=== PATIENT | female | born 1970 | race Caucasian/White ===

== ENCOUNTER 2017-04-03 11:01 | Emergency (ER) | payer OTHER ==
[~2017-04-03] VITALS: Ht 160 cm; Wt 66.5 kg
[2017-04-03 11:05] VITALS: Ht 160 cm; Wt 66.5 kg
--- NOTE | 2017-04-03 11:27 | ERD ---
ER Documentation Chief Complaint Date/Time DATE: 04/03/17 TIME: 11:25 Chief Complaint both eye swelling x 2 days; possible allergic rxn to food HPI 47-year-old female comes with bilateral eye swelling and itching around the mouth after eating mangoes 3 days ago. She has suffered tried loratadine for this, also took Atarax continues of swelling. She has no trouble swallowing, voice changes, drooling or shortness of breath. Patient also reports she woke up today with lower back pain. Is worse with movement. She denies any fevers, hematuria, UTI symptoms. No chest pain or shortness of breath. ROS All systems reviewed and are negative except as per history of present illness. Medications Home Meds Active Scripts Famotidine* (Famotidine*) 20 Mg Tablet, 20 MG PO BID for 5 Days, #10 TAB Prov:CATALINA WHELAN PA-C 04/03/17 Diphenhydramine Hcl* (Benadryl*) 25 Mg Cap, 25 MG PO Q6, #30 CAP Prov:CATALINA WHELAN PA-C 04/03/17 Prednisone* (Prednisone*) 20 Mg Tab, 40 MG PO DAILY for 4 Days, TAB Prov:CATALINA WHELAN PA-C 04/03/17 Allergies Allergies: Coded Allergies: No Known Allergy (Unverified , 04/03/17) Physical Exam Vitals Vital Signs Date Time Temp Pulse Resp B/P Pulse Ox O2 Delivery O2 Flow Rate FiO2 04/03/17 11:05 98.2 74 18 113/66 98 Physical Exam General: Well-developed, well-nourished. The patient appears in no acute distress. HEENT: Head is normocephalic, atraumatic. No scleral icterus. Pupils are equal , round, and reactive. Mild periorbital swelling. Oral mucous membranes are moist. No pharyngeal erythema. No angioedema Neck: Supple. Nontender. Lungs: Clear to auscultation. Normal air movement. Heart: Regular rate and rhythm. S1 and S2 are normal. No murmurs, gallops, or rubs. Abdomen: Soft, nontender, nondistended. Bowel sounds are normoactive. Back: no midline tenderness, no step offs. no rashes. paraspinal tenderness with palpation to mid thoracic and lumbar region Extremities: No clubbing or cyanosis. Normal pulses. Moving extremities x 4. No weakness. Neurologic: Alert and oriented 3. No focal deficits. Skin: Normal turgor. No rash or lesions. Results 24 hrs Laboratory Tests Test 04/03/17 11:45 Bedside Urine pH (LAB) 5.0 Bedside Urine Protein (LAB) Negative Bedside Urine Glucose (UA) Negative Bedside Urine Ketones (LAB) Negative Bedside Urine Blood 3+ Bedside Urine Nitrite (LAB) Negative Bedside Urine Leukocyte Esterase (L Negative Current Medications Medications (Trade) Dose Ordered Sig/Madhuri Route PRN Reason Start Time Stop Time Status Last Admin Dose Admin Prednisone (Prednisone) 40 mg ONCE ONCE PO 04/03/17 11:30 04/03/17 11:31 DC 04/03/17 11:43 Diphenhydramine HCl (Benadryl) 25 mg ONCE ONCE PO 04/03/17 11:30 04/03/17 11:31 DC 04/03/17 11:45 Procedures/MDM ED course: She was given Benadryl and prednisone in the emergency room. MDM: 47-year-old female comes in with a food reaction, and there is no evidence of his persistent systemic inflammatory response, no signs of anaphylaxis. She is complaining of back pain, it appears to be nonspecific and likely musculoskeletal. She does report that she is on her menstrual cycle, that is likely attributed to evidence of blood in the urine. She does not have any history of gross hematuria, patient's pain is nonspecific and does not appear to be renal colic, likely unrelated to a kidney stone. There is no evidence of UTI or pyelonephritis. She will be asked to take an anti-inflammatory including ibuprofen for pain. At this time she is well-appearing, without any systemic signs, respiratory distress or angioedema and is stable for outpatient management. Departure Diagnosis: Primary Impression: Allergic reaction Additional Impression: Back pain Condition: CATALINA Preston PA-C April 03, 2017 11:27
[2017-04-03] MEDS ORDERED: DIPHENHYDRAMINE 25 MG CAP PO ONE (11:30)
[2017-04-03] MEDS ORDERED: predniSONE 20 MG TAB PO ONE (11:30)
[2017-04-03 11:43] LABS: URINE BLOOD (Dip) POC 3+ (NEGATIVE)
[2017-04-03] MEDS ORDERED: BEN25 PO (12:13)
[2017-04-03] MEDS ORDERED: FAMO20TA18 PO (12:13)
[2017-04-03] MEDS ORDERED: PRED20TA PO (12:13)
[2017-04-03 12:32] VITALS: BP 119/81; PULSE 84; RESP 18; TEMP 97.8
== END 2017-04-03 12:34 | disposition home or self-care (01) ==
LOC: FTE 11:01
DX: M54.6 Pain in thoracic spine (principal); M54.5 Low back pain
CPT/HCPCS: 81003; J7512; Z7610; 99283